=== PATIENT | male | born 1940 | race Caucasian/White ===

== ENCOUNTER 2017-11-19 07:06 | Observation (INO) | payer MEDICARE ==
--- NOTE | 2017-11-05 23:07 | HP ---
CC: Dr. Bunn * HISTORY AND PHYSICAL: DATE OF PLANNED ADMISSION AND SURGERY: 11/19/17 HISTORY OF PRESENT ILLNESS: Mr. Olivo is a 77-year-old white male who is admitted with bladder outlet obstruction, prostate enlargement, bladder calculi , recurrent urinary tract infections, for cystoscopy, cystolitholapaxy and transurethral resection of the prostate. I have been following Mr. Olivo for the last 5 years because of bladder outlet obstruction. He has been maintained on finasteride with improved voiding. Starting about 3 years ago, he has been having on and off episodes of urinary tract infections. They were mildly symptomatic with some burning and frequency. His urine cultures had grown Staph aureus. He was worked up with bilateral renal ultrasound, which showed bilateral renal calculi with one 5 mm calculus in each kidney. The calculi were asymptomatic and not associated with any flank pain, hydronephrosis or symptoms of pyelonephritis. Because of the recurrent episodes of urinary tract infections in spite of proper antibiotics treatment, the patient had a repeat cystoscopy. The prostate was enlarged and obstructing. There were diffuse bladder trabeculations. Two bladder calculi were noted measuring about 1 cm each. No suspicious bladder lesions were seen. Uroflowmetry showed a peak flow of 5 mL per second. Postvoid bladder ultrasound showed good bladder emptying. PAST MEDICAL HISTORY AND SYSTEM REVIEW: The patient has history of bipolar disorder, depression and more recently changes of dementia. He denies any cardiac or pulmonary diseases or symptoms. He is maintained on Prozac, Seroquel , and ibuprofen as needed. He has history of sleep apnea. He is on quetiapine 200 mg at bedtime. ALLERGIES: He reports having rash on FLEXERIL. LITHIUM gives him tremors, and he has intolerance to statins. PHYSICAL EXAMINATION GENERAL: Pleasant white male, who looks his age. VITAL SIGNS: Blood pressure 120/70, pulse of 80. LUNGS: Clear. HEART: Regular and rhythmic. No murmurs. ABDOMEN: Soft. No masses, no tenderness, and no CVA tenderness. EXTERNAL GENITALIA: Normal. RECTAL: Examination showed a moderately enlarged but nonsuspicious prostate. LABORATORY DATA: His last PSA on finasteride was 2.3. IMPRESSION: Recurrent episodes of urinary tract infections with prostate enlargement, bladder outlet obstruction, and bladder calculi. PLAN: Cystoscopy, cystolitholapaxy, and transurethral resection of the prostate. I discussed the above plans in detail with the patient and his . Some of the potential complications including infections, hematuria, small incidents of incontinence. All their questions were answered. [id number]/[facility] #: [id number] DIANE
[~2017-11-19 07:06] MED LIST: Buffered Lidocaine 0.9% SYRIN* 5 ML/SYR SYRINGE INTRADERM ONE; Dexamethasone IV* 4 MG/ML 1 ML (4 MG) IV SLOW PU ONE; Famotidine IV* 10 MG/ML 2 ML (20 mg) IV ONE
[2017-11-19] MEDS ORDERED: Famotidine IV* 10 MG/ML 2 ML (20 mg) ONE (07:36)
[2017-11-19] MEDS ORDERED: Dexamethasone IV* 4 MG/ML 1 ML (4 MG) ONE (07:36)
[2017-11-19] MEDS ORDERED: cefTRIAXone(*) 2 GM ADDV.VIAL IVPB ONE (07:36)
[2017-11-19 08:17] LABS: INR 1.07 (0.77-1.02)
[2017-11-19] MEDS ORDERED: HYDROcodone/ACETAMIN 5-325 MG* 1 TAB PO PRN (08:32)
[2017-11-19] MEDS ORDERED: Naloxone* 0.4 MG/ML 1 ML VIAL IV PRN (08:32)
[2017-11-19] MEDS ORDERED: fentaNYL* 50 MCG/ML 2 ML VIAL (100 MCG VIAL) IV PRN (08:32)
[2017-11-19] MEDS ORDERED: Acetaminophen TAB* 325 MG PO PRN (08:32)
[2017-11-19] MEDS ORDERED: DiMENhydriNATE IV* 50 MG/ML VIAL IV PUSH PRN (08:32)
[2017-11-19] MEDS ORDERED: fentaNYL* 50 MCG/ML 2 ML VIAL (100 MCG VIAL) ONE ×2 (08:46→09:38)
[2017-11-19] MEDS ORDERED: Lidocaine 2% PF * 5 ML VIAL ONE (08:46)
[2017-11-19] MEDS ORDERED: Propofol* 10 MG/ML 20 ML BTL IV PUSH ONE (08:46)
[2017-11-19] MEDS ORDERED: EPHEDrine (Pressors)* 50 MG/ML VIAL ONE (09:01)
[2017-11-19] MEDS ORDERED: Ondansetron INJ* 2 MG/ML VIAL ONE (09:51)
[2017-11-19] MEDS ORDERED: Lidocaine 2% JELLY* 6 ML JELLY TOPICAL PRN (12:14)
[2017-11-19] MEDS ORDERED: oxyCODONE/Acetamin 5/325 MG* TAB PO PRN ×2 (12:15→12:28)
[2017-11-19] MEDS: Oxybutynin TAB* 5 MG PO PRN (15:30)
[2017-11-19] MEDS ORDERED: Lactated Ringers 250 ml Bag* 250 ML IV ONE (17:45)
[2017-11-19 19:48] LABS: EGFR Non-African American 68.7 (>60)
--- NOTE | 2017-11-19 21:19 | CONS ---
CC: Dr. Bunn; Dr. Gnuderson; Dr. Rey * CONSULTATION REPORT: DATE OF CONSULT: 11/19/17 PRIMARY CARE PROVIDER: Dr. Bunn. MY ATTENDING PHYSICIAN WHILE IN THE HOSPITAL: Dr. Anil Koenig (report dictated by Arvind Moon NP) REASON FOR MEDICAL CONSULTATION: Evaluation of irregular heart beats. HISTORY OF PRESENT ILLNESS: Mr. Olivo is a 77-year-old male patient. He carries a history of BPH, DICK, and he also carries a history of depression, dementia, bipolar disorder, history of melanoma. He is coming into the urology services today for an elective TURP and cystoscopy. In the postoperative course , it was noted that he had an episode of bradycardia. We were asked to evaluate in consult for this. The patient says that he is not feeling lightheaded. He denies feeling short of breath. He denied having any chest discomfort. He denied having any lightheadedness or dizziness. He did admit to having some lower abdominal pressure and burning. He denies having any shortness of breath. The patient says to his knowledge, he has never had any issues with his heart. He has not had any issues of bradycardia. He does say that he recently started Aricept about few weeks ago. His neurologist, Dr. Rey , had started him on that for a mild dementia. He says that he has no history of diabetes, no history of syncope, no history of chest pain, no history of CAD or again no history of ME or heart failure. It was noted in the postoperative setting initially on the bedside monitor, the vital signs in the machine with the heart rate of 29. Nursing staff checked it manually, they got 45 and the heart rate was irregular. We were asked to evaluate. PAST MEDICAL HISTORY: Significant for: 1. BPH. 2. Depression. 3. Mild dementia. 4. Bipolar. 5. DICK. 6. Melanoma. PAST SURGICAL HISTORY: 1. The patient has had done today a TURP. 2. Back surgery. 3. Neck surgery. 4. Appendectomy. MEDICATIONS: Home medications include: 1. Percocet 1 tablet every 6 hours as needed. 2. Proscar 5 mg daily. 3. Augmentin 875 mg p.o. b.i.d. 4. Aricept 5 mg daily. 5. Prozac 20 mg daily. 6. Finasteride 5 mg p.o. daily. ALLERGIES TO MEDICATION: FLEXERIL and LITHIUM. FAMILY HISTORY: His mother had a history of emphysema. The father had a history of throat cancer. REVIEW OF SYSTEMS: There is no documented fever. Denies having any significant weight change. There is no double vision. He denies having any ear discharge. There is no rhinorrhea. There was no sore throat. There was no thyroid enlargement. Denies having any chest pain. There is no orthopnea. There is no nocturnal dyspnea. He is denying having any abdominal pain. There was no nausea. There was no vomiting. No dysuria. There was no frequency. No seizure. No loss of conscious. No pruritus and no skin ulceration. Review of 14 systems completed, all others negative. PHYSICAL EXAM: Vital Signs: Blood pressure 104/44, his heart rate now is 80, respirations are 18, O2 sat 95%, temperature 97.6. General: At this time, Mr. Olivo is a 77-year-old male patient. He is sitting in the postoperative bed. He does appear to be in any acute distress. HEENT: Head, atraumatic and normocephalic. Eyes, EOMs are intact. Sclerae anicteric and not pale. Neck: Supple. Throat: Oral mucosa does appear to be moist. No oropharyngeal erythema. Heart: Sounds S1, S2. It is in the irregularly irregular rate. No murmurs, rubs, or gallops. Lungs: Clear to auscultation. No wheezes, rales, or rhonchi. Abdomen was soft. It was flat. There is tenderness in the suprapubic area. Extremities: Pulses were 2+ throughout. He is moving all 4 extremities with 5/5 strength. Neurologically, he is awake, he is alert, and he is oriented x3. Tongue is midline. Corset Maker were equal. There was no gross focal deficits. His skin is intact. DIAGNOSTIC STUDIES/LAB DATA: Labs today, INR 1.07. Sodium 137, potassium 4.1, chloride of 104, bicarb 24, BUN 15, creatinine 1.05, calcium 8.8, glucose of 198. He had a CBC preop, WBC of 8, RBC of 5.06, hemoglobin 16.1, hematocrit 48, platelet count of 250. He did have an EKG obtained that was just done today. It shows a sinus rhythm at a rate of 80. He has multiple PACs. No ST elevations or T-wave inversions. 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 I do not have a previous EKG for comparison. Old medical records were reviewed. ASSESSMENT AND PLAN: Mr. Olivo is a 77-year-old male patient coming into the Dr. Gunderson's services for an elective transurethral resection of the prostate. We were asked to evaluate him in consult due to episodes of bradycardia, irregular heart rate. Recommendations at this point are: 1. Status post transurethral resection of the prostate. Defer the management to Dr. Gunderson and his team. 2. Bradycardia and irregular heart beat. Again, my question, with the vital signs in the machine, he is clearly having frequent PACs. It may not have been an accurate rate at 29 heart rate. His blood pressure is a little low, but it is responding to fluids. I do not know his baseline blood pressure in the outpatient world. He is asymptomatic from this standpoint, though he is not having any lightheadedness or chest pain. He does not feel like he is going to faint. There is no syncope. The EKG here appears to be stable. What could have caused this also could have been from pain or increased vagal tone. In addition to this, I am checking electrolytes. Mag and TSH are pending. His potassium is okay. Also, if he would have been sleeping, he has sleep apnea if he did not have his mask on, this certainly could have caused it. I think, we need to monitor this on telemetry. He is not having any chest pain. I do not believe there was any need for cycling his troponins and we will just follow him on tele and continue to monitor. If it continues to happen or if he goes into a higher degree of block, we will get Cardiology involved. 3. Benign prostatic hypertrophy. Defer the management to Dr. Gunderson. 4. Depression. Continue meds as prescribed. 5. Dementia. He is on Aricept. The Aricept does have 1% to 10% chance of causing irregular EKG, in addition to this causing bradycardia, so I have stopped this for the time being. This could be reevaluated with his primary neurologist, Dr. Rey and also his PCP, Dr. Bunn. 6. Bipolar disorder. Continue supportive care. 7. Obstructive sleep apnea. Continue with CPAP. I did order a pulse ox overnight for 24 hours. 8. Melanoma. Follow up with primary care provider. 9. DVT prophylaxis. Defer to the primary team. 10. Code status. Full code. 11. Fluid, electrolytes, nutrition. He can have a regular diet. TIME SPENT: Time spent on the consult was 60 minutes, greater than half time was spent [id number] with the patient obtaining my history and physical, other half time was spent going over the plan of care with the patient and implementing plan of care. I did discuss the plan of care with my attending, Dr. Koenig, he is in agreement. ARVIND MOON, TAXICAB DISPATCHER [id number]/[facility] #: [id number] MTDD
--- NOTE | 2017-11-19 21:36 | OP ---
CC: Dr. Bunn * DATE OF OPERATION: 11/19/17 - ROOM #334 DATE OF : 42 SURGEON: Harrison Gunderson MD ANESTHESIOLOGIST: Ike Ruiz MD ANESTHESIA: General. PRE-OP DIAGNOSES: 1. Recurrent urinary tract infections. 2. Prostate enlargement and bladder outlet obstruction. 3. Bladder calculi. POST-OP DIAGNOSES: 1. Recurrent urinary tract infections. 2. Prostate enlargement and bladder outlet obstruction. 3. Bladder calculi. OPERATIVE PROCEDURE: 1. Cystoscopy. 2. Cystolitholapaxy. 3. Transurethral resection of the prostate. INDICATIONS: Mr. Olivo is a 77-year-old white male who has a long history of bladder outlet obstruction, and has been maintained on finasteride 5 mg daily. He recently started having episodes of urinary tract infections recurring after adequate antibiotic treatment. Workup showed normal kidneys, and cystoscopy showed 2 bladder calculi measuring 1 cm each, a large obstructing prostate, small postvoid residual. Because of the above history, and especially the recurrent episodes of infections with the presence of bladder calculi, the above operation was advised and accepted. PATHOLOGY AT CYSTOSCOPY: The penile and bulbar urethrae looked normal. The prostatic urethra measured about 3.5 cm in length and there was significant degree of obstruction by trilobar hyperplasia of the prostate with a large obstructing median lobe. There was obstructing adenomatous tissue extending to just beyond the level of the verumontanum. Examination of the bladder showed diffuse trabeculations. There were no suspicious bladder lesions seen. Two calculi measuring 1 cm each were noted in the base of the bladder. There were no diverticula. The prostate adenoma was moderately vascular. DESCRIPTION OF PROCEDURE: After successful general anesthesia, the patient was placed in the lithotomy position, and was prepped and draped for cystoscopy. Cystoscopy was performed. The bladder was carefully inspected and the above findings were noted. The stone crushing forceps was then introduced inside the bladder. The bladder was filled up with irrigation fluid. Each stone was then grabbed with the forceps, brought in into the middle of the lumen of the bladder and was crushed into several pieces. This was performed without any injury to the bladder wall. The bladder was then irrigated and all the stone fragments were evacuated. The resectoscope was then introduced inside the bladder. Mannitol-sorbitol solution was used for irrigation and the inflow and outflow were adjusted to avoid overdistention of the bladder. The median lobe was resected first till the level of the posterior bladder neck. The protruding portions of the lateral lobes inside the bladder neck were then resected circumferentially. The resectoscope was then positioned in the mid prostatic urethra. The adenomatous tissue was resected circumferentially. The scope was then positioned at the level of the verumontanum. The left lobe was then resected starting at 5 o'clock and proceeding anteriorly. The right lobe was resected next. There was an unusual amount of anterior obstructing tissue and that was resected to the level of the capsular fibers. Some resection had to be carried just beyond the verumontanum because of obstructing adenomatous tissue protruding beyond that level. Care was taken not to injure the external sphincter. The limits of the resection were the verumontanum distally, the capsule circumferentially, and the bladder neck proximally. At the completion of the resection, the prostatic fossa was wide open. The veru and external sphincter looked intact. There were no deep cuts into the capsule and no residual obstructing tissue. All the prostate chips were evacuated. The bladder neck and the orifices were intact. After thorough bladder irrigation, the resectoscope was removed and a size 22- Greek Chilel catheter was passed inside the bladder and the balloon inflated with 35 cc of water. The catheter was placed under gentle traction and taped to the right thigh of the patient. Irrigation yielded clear returns. The patient tolerated the procedure well and left the operating room in good condition. The blood loss was estimated at about 75 cc. The specimens were fragments of bladder calculi and prostate chips. [id number]/[facility] #: [id number] DIANE
[2017-11-19] MEDS ORDERED: Magnesium Sulfate 2 GM IV* 2 GM/50 ML BAG IVPB ONE (23:00)
[2017-11-20] MEDS: Oxybutynin TAB* 5 MG PO PRN (00:33)
[2017-11-20] MEDS ORDERED: cefTRIAXone(*) 1 GM in NS 0.9% 50 ML* 50 ML IVPB ONE (07:00)
[2017-11-20] MEDS ORDERED: FLUoxetine CAP* 20 MG PO SCH (09:00)
[2017-11-20] MEDS ORDERED: Finasteride TAB* 5 MG PO SCH (09:00)
[2017-11-20] MEDS ORDERED: Donepezil TAB* 5 MG PO SCH (09:00)
[2017-11-20 10:05] VITALS: BP 126/50
--- NOTE | 2017-11-26 23:59 | DS ---
CC: Dr. Bunn * DISCHARGE SUMMARY: DATE OF ADMISSION: 11/19/17 DATE OF DISCHARGE: 11/20/17 OPERATION: 1. Cystolitholapaxy. 2. Transurethral resection of the prostate. FINAL DIAGNOSES: 1. Bladder calculi. 2. Recurrent urinary tract infections. 3. Bladder outlet obstruction due to prostate enlargement. 4. Sleep apnea. 5. Depression. 6. Bipolar disorder. 7. Early dementia. 8. Arrhythmias with premature atrial contractions. HISTORY: Mr. Olivo is a 77-year-old white male whom I have been following because of prostate enlargement and bladder outlet obstruction. He had been maintained on finasteride with improvement. Recently, he started having recurrent episodes of urinary tract infections that would recur after treatment. Workup with cystoscopy showed 2 bladder calculi measuring 1 cm each. The prostate was large and obstructing. He had minimal postvoid residual. Because of the above history, the recurrent infections, the bladder calculi, and the prostate enlargement and obstruction, he was admitted for cystolitholapaxy and transurethral resection of the prostate. PAST MEDICAL HISTORY AND SYSTEM REVIEW: The patient has a history of depression , mild dementia, bipolar disorder, sleep apnea. He has been maintained on finasteride 5 mg daily, Aricept 5 mg daily, Prozac 20 mg daily. Preoperative lab work was within normal. Preoperative physical exam was also within normal and the rectal exam showed an enlarged and nonsuspicious prostate. COURSE IN THE HOSPITAL: The patient was admitted on the morning of his surgery. He underwent an uncomplicated cystolitholapaxy and transurethral resection of the prostate. The surgery went very well without any problems. Postoperatively on the floor, he was noted to have irregular heart rate and bradycardia. A medical consultation was obtained. His electrolytes were normal. His EKG showed bradycardia and PACs. There was, however, no hypotension. The arrhythmias were possibly related to the side effects of the Aricept and this was discontinued. The patient was observed overnight and by the morning, he was feeling much better, his heart rate was regular, and he was asymptomatic. His urine was clear. The patient was discharged home on his preoperative medications with the exception of the Aricept. He will be seen in the office in 1 week for Chilel catheter removal. He is to follow up with Dr. Bunn, his copier field service technician, for the recent arrhythmias. The pathology on the resected prostate tissue was all benign. [id number]/[facility] #: [id number] [facility] CENTERSakina
== END 2017-11-20 13:20 | disposition home or self-care (01) ==
LOC: OR 07:06 → SSU 11:53
PROVIDERS: ADMIT Urology; ATTEND Urology
DX: N39.0 Urinary tract infection, site not specified (principal); N40.0 Benign prostatic hyperplasia without lower urinary tract symptoms; K80.20 Calculus of gallbladder without cholecystitis without obstruction
CPT/HCPCS: 36415; 80048; 82365; 83735; 84443; 85610; 88300; 88305; 93005; A9270-GY; G0378; J0696; J1100; J2405; J2704; J3010; J3475

== ENCOUNTER 2018-10-10 15:04 | Observation (INO) | payer MEDICARE ==
[2018-10-10 15:51] LABS: Urine Appearance Cloudy; Urine Bacteria 1+ (Absent); Urine Bilirubin Negative (Negative); Urine Blood 1+ (Negative); Urine Color Yellow; Urine Glucose Negative (Negative); Urine Ketones Negative (Negative); Urine Nitrite Negative (Negative); Urine Protein 1+(30 mg/dL) (Negative); Urine Red Blood Cell 2+(6-10/hpf) (Absent); Urine Specific Gravity 1.024 (1.010-1.030); Urine Squamous Epithelial Cell Present (Absent); Urine Urobilinogen Negative (Negative); Urine White Blood Cell 2+(11-20/hpf) (Absent)
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
[2018-10-10] MEDS ORDERED: NS 0.9% 1000 ML** 1,000 ML IV ONE (16:50)
[2018-10-10 16:58] LABS: ABS Basophils 0.1 10^3/ul (0-0.2); ABS Lymphocytes 1.9 10^3/ul (1.0-4.8); ABS Monocytes 1.1 10^3/ul (0-0.8); ABS Neutrophils 4.6 10^3/ul (1.5-7.7); Eosinophil % 0.5 %; Hematocrit 43 % (42-52); Hemoglobin 14.8 g/dL (14.0-18.0); Lymphocyte % 24.3 %; Mean Corpuscular HGB Conc 34 g/dL (31-36); Mean Corpuscular Hemoglobin 32 pg (27-31); Mean Corpuscular Volume 92 fL (80-94); Mean Platelet Volume 6.9 fL (7.4-10.4); Nucleated Red Blood Cells % 0.1; Platelet Count 225 10^3/uL (150-450); Red Blood Count 4.66 10^6 /uL (4.18-5.48); Red Cell Distribution Width 14 % (10-15); White Blood Count 7.7 10^3/uL (3.5-10.8)
[2018-10-10 17:19] LABS: Albumin 4.1 g/dL (3.2-5.2); Albumin/Globulin Ratio 1.3 (1-3); BUN/Creatinine Ratio 13.5 (8-20); C Reactive Protein 5.09 mg/L (<8.01); Calcium 9.4 mg/dL (8.6-10.3); EGFR African American 77.9 (>60); EGFR Non-African American 64.4 (>60); Globulin 3.2 g/dL (2-4); Potassium 4.1 mmol/L (3.5-5.0); Total Bilirubin 0.6 mg/dL (0.2-1.0); Total Protein 7.3 g/dL (6.4-8.9); Troponin I 0.01 ng/mL (<0.04)
[2018-10-10 18:09] LABS: Urine Appearance Clear; Urine Bacteria Absent (Absent); Urine Bilirubin Negative (Negative); Urine Blood 1+ (Negative); Urine Color Yellow; Urine Glucose Negative (Negative); Urine Ketones Negative (Negative); Urine Nitrite Negative (Negative); Urine Protein Negative (Negative); Urine Red Blood Cell 2+(6-10/hpf) (Absent); Urine Specific Gravity 1.014 (1.010-1.030); Urine Squamous Epithelial Cell Present (Absent); Urine Urobilinogen Negative (Negative); Urine White Blood Cell 1+(6-10/hpf) (Absent)
[2018-10-10] MEDS ORDERED: cefTRIAXone(*) 1 GM in NS 0.9% 50 ML* 50 ML IVPB ONE (18:15)
[2018-10-10] MEDS ORDERED: cefTRIAXone(*) 1 GM in NS 0.9% 50 ML* 50 ML IVPB SCH (19:00)
[2018-10-10] MEDS ORDERED: Ondansetron INJ* 2 MG/ML VIAL IV PRN (19:02)
[2018-10-10] MEDS ORDERED: Acetaminophen TAB* 325 MG PO PRN (19:02)
--- NOTE | 2018-10-10 20:52 | HP ---
CC: Dr. Laurel Martinez * HISTORY AND PHYSICAL: DATE OF ADMISSION: 10/10/18 PRIMARY CARE PROVIDER: Laurel Martinez MD CHIEF COMPLAINT: Confusion and hallucination. HISTORY OF PRESENT ILLNESS: This is a 77-year-old male with history of dementia ; bipolar disorder; depression; sleep apnea, on CPAP; recurrent UTI; bladder stones; chronic pain syndrome who was brought in to the hospital because had noticed that the patient is having more confusion and hallucinations. Confusion and hallucination has been going on for about 2 days now, reports that last night when this happened, the patient was found to have urinary tract infection. About 2 weeks ago, the patient reports that he had another kidney and bladder infection, he finished a course of antibiotics. In October 2017, the patient had a recurrent UTI, bladder stone, and underwent a TURP procedure. The patient reports no fevers, no chills. He does have some urinary hesitancy and frequency; however, he does not know if that is related to his prostate issues or if there is something new going on. He reports no fevers, no chills. is at bedside who reports no other symptoms except for confusion and hallucinations. The patient does have a history of dropped foot, which he is getting worked up as an outpatient, underwent an EMG two days ago for this purpose. The patient has also had decreased mobility and has history of back surgery as well as neck surgery, workup has been planned as an outpatient. reports that they want to image his back to figure out why the patient is having decreased mobility. PAST MEDICAL HISTORY: Dementia, dipolar disorder; depression; premature atrial contraction; sleep apnea, on CPAP at 10 cm; recurrent UTI; kidney stones; chronic pain syndrome. PAST SURGICAL HISTORY: TURP, neck surgery, back surgery. MEDICATIONS: Home medications include: 1. Memantine, Namenda 5 mg twice a day. 2. Fluoxetine 20 mg in the morning. 3. Cyanocobalamin 2500 mcg every other day. 4. Lipitor 20 mg daily. ALLERGIES: CYCLOBENZAPRINE, LITHIUM, and FRESH FRUIT. SOCIAL HISTORY: The patient lives at home with his , does not smoke, no alcohol use. FAMILY HISTORY: Significant for Crohn disease. REVIEW OF SYSTEMS: General: No fevers, no chills, no change in weight. No sore throat, no trouble breathing, no shortness of breath, no cough, no sputum production, no chest pain, no palpitations. No abdominal pain, no nausea, no vomiting, no diarrhea. : See HPI. Skin: No rashes or lesions. Neurological: See HPI. There is no focal weakness or numbness. PHYSICAL EXAMINATION GENERAL: This is a well-developed, well-nourished male, lying in bed, in no acute distress. VITAL SIGNS: Blood pressure of 137/94, oxygenation of 93% on room air, respiratory rate of 15, heart rate of 78, temperature is of 98.8. HEENT: Pupils are equal, round, and reactive to light. Atraumatic, normocephalic. Oral mucosa is dry, there is no oropharyngeal erythema. No cervical lymphadenopathy. LUNGS: There is no tachypnea. No use of accessory muscles. Lungs are clear to auscultation with no wheezing, rales, or rhonchi. HEART: There is no chest wall tenderness, regular rate, rhythm, no murmurs. ABDOMEN: Bowel sounds are normoactive in all 4 quadrants, abdomen is soft, nontender, nondistended. : There is no fLank tenderness. There is no suprapubic fullness or tenderness. EXTREMITIES: There is no lower extremity edema. No calf tenderness. NEUROLOGICAL: Alert and oriented x3. Motor is 5/5 in upper extremities, 4/5 lower extremities, there is a left foot drop. DIAGNOSTIC STUDIES/LAB DATA: Labs and imaging: WBC count of 7.7, hemoglobin of 14.8, hematocrit of 43, platelets of 225. Sodium of 138, potassium of 4.1, chloride of 107, BUN of 15, creatinine of 1.1, glucose of 112. Troponin is 0.01. Albumin of 4.1. Urinalysis shows specific gravity of 1.024, 1+ protein, trace leuk esterase, 2+ urine wbc, 2+ urine rbc, squamous cells were present, bacteria 1+. Official x-ray report is pending, reviewed by me, there are no acute cardiopulmonary issues, I do not see any focal consolidation suggestive of pneumonia. The patient had a brain CT done, which the radiologist read as no definitive intracranial mass or hemorrhage is noted. IMPRESSION AND PLAN: 1. Confusion: This could be secondary to an underlying urine infection and also the patient seems to be dehydrated. At this point, CAT scan of the brain is negative. I will further evaluate with an MRI of the brain. Confusion is also associated with hallucination. The patient does not have any history of alcohol use though. 2. Possible urinary tract infection: The patient has recurrent urinary tract infection, also history of TURP as well as bladder calculi. At this point, I will start the patient on IV Rocephin, await the results of a urine culture. The patient is afebrile. We will monitor the patient. 3. Dehydration: reports that the patient does not drink enough, I will start the patient on gentle IV hydration. 4. History of dementia: Continue Namenda. 5. History of depression: Continue home dose fluoxetine. 6. History of sleep apnea: Continue CPAP at 10 cm H2O. 7. History of dyslipidemia: Continue Lipitor. 8. DVT prophylaxis: ambulate, PT eval. 9. Code status: The patient and agreed that the healthcare proxy is the , [employer], phone number is [phone] and the patient is a full code. My assessment and plan discussed in detail with the patient as well as the at bedside. Additional management as the hospital course progresses. [id number]/[facility] #: [id number] MTDD
[2018-10-10] MEDS: NS 0.9% 1000 ML** 1,000 ML IV SCH (21:09)
[2018-10-10] MEDS: Memantine TAB* 5 MG PO SCH (23:06)
[2018-10-10] MEDS: Atorvastatin* 20 MG TAB PO SCH (23:07)
[2018-10-11] MEDS: NS 0.9% 1000 ML** 1,000 ML IV SCH ×2 (06:20→19:11)
[2018-10-11] MEDS: Memantine TAB* 5 MG PO SCH ×2 (10:57→20:05)
[2018-10-11] MEDS: FLUoxetine CAP* 20 MG PO SCH (10:57)
--- NOTE | 2018-10-11 11:42 | PN ---
Subjective Date of Service: 10/11/18 Interval History: No fever, confusion and hallucination resolved. reports mentation back to baseline. Objective Active Medications: Acetaminophen (Tylenol Tab*) 650 mg PO Q6H PRN PRN Reason: FEVER Atorvastatin Calcium (Lipitor*) 20 mg PO 2100 [facility] Last Admin: 10/10/18 23:07 Dose: 20 mg Cyanocobalamin (Vitamin B12 Tab*) 2,500 mcg PO EVERY OTHER DAY [facility] Fluoxetine HCl (Prozac Cap*) 20 mg PO QAM [facility] Last Admin: 10/11/18 10:57 Dose: 20 mg Sodium Chloride (Ns 0.9% 1000 Ml) 1,000 mls @ 100 mls/hr IV PER RATE [facility] Last Admin: 10/11/18 06:20 Dose: 100 mls/hr Ceftriaxone Sodium 1 gm/ (Sodium Chloride) 50 mls @ 200 mls/hr IVPB 1800 [facility] Memantine (Namenda Tab*) 5 mg PO BID [facility] Last Admin: 10/11/18 10:57 Dose: 5 mg Ondansetron HCl (Zofran Inj*) 4 mg IV Q6H PRN PRN Reason: NAUSEA Vital Signs - 8 hr 10/11/18 07:27 Temperature 98.2 F Pulse Rate 77 Respiratory 16 Rate Blood Pressure 139/81 (mmHg) O2 Sat by Pulse 92 Oximetry Oxygen Devices in Use Now: None Appearance: Sitting on chair, not in distress Respiratory: Symmetrical Chest Expansion and Respiratory Effort Cardiovascular: NL Sounds; No Murmurs; No JVD, RRR Extremities: - - Trace lower extremity edema. no calf tenderness Neurological: - - awake/alert/oriented X 2- person/place., follows commands, left foot drop. Result Diagrams: 10/10/18 16:49 10/10/18 16:49 Additional Lab and Data: Lab Results 10/10/18 Range/Units 15:20 Urine Color Yellow Urine Appearance Cloudy Urine pH 5.0 (5-9) Ur Specific [place] 1.024 (1.010-1.030) Urine Protein 1+(30 mg/dl) A (Negative) Urine Ketones Negative (Negative) Urine Blood 1+ A (Negative) Urine Nitrate Negative (Negative) Urine Bilirubin Negative (Negative) Urine Urobilinogen Negative (Negative) Ur Leukocyte Esterase Trace A (Negative) Urine WBC (Auto) 2+(11-20/hpf) A (Absent) Urine RBC (Auto) 2+(6-10/hpf) A (Absent) Ur Squamous Epith Cells Present A (Absent) Calcium Oxalate Crystal Present A (Absent) Urine Bacteria 1+ A (Absent) Urine Glucose Negative (Negative) Assess/Plan/Problems-Billing Assessment: 77 year old Male with dementia, depression, recurrent UTI, here with confusion/ hallucination. - Patient Problems (1) Encephalopathy Current Visit: Yes Status: Acute Code(s): G93.40 - ENCEPHALOPATHY, UNSPECIFIED SNOMED Code(s): 95349997 Comment: present on admission, resolved. hx of recurrent UTI, U/A is abnormal, culture pending, continue rocephin CT and MRI negative for acute issues. (2) Dehydration Current Visit: Yes Status: Acute Code(s): E86.0 - DEHYDRATION SNOMED Code( s): 91239800 Comment: IV fluids. due to low PO hydration (3) Sleep apnea Current Visit: Yes Status: Acute Code(s): G47.30 - SLEEP APNEA, UNSPECIFIED SNOMED Code(s): 72811541 Comment: CPAP (4) Dementia Current Visit: Yes Status: Acute Code(s): F03.90 - UNSPECIFIED DEMENTIA WITHOUT BEHAVIORAL DISTURBANCE SNOMED Code(s): 74528901 Comment: on namenda (5) Depression Current Visit: Yes Status: Acute Code(s): F32.9 - MAJOR DEPRESSIVE DISORDER , SINGLE EPISODE, UNSPECIFIED SNOMED Code(s): 24064997 Comment: on fluoxetine (6) DVT prophylaxis Current Visit: Yes Status: Acute Code(s): Z29.9 - ENCOUNTER FOR PROPHYLACTIC MEASURES, UNSPECIFIED SNOMED Code(s): 778558428 Comment: Ambulate,
[2018-10-11] MEDS ORDERED: cefTRIAXone(*) 1 GM in NS 0.9% 50 ML* 50 ML IVPB SCH (18:00)
[2018-10-11] MEDS: Atorvastatin* 20 MG TAB PO SCH (20:05)
[2018-10-12] MEDS: NS 0.9% 1000 ML** 1,000 ML IV SCH (05:11)
[2018-10-12] MEDS ORDERED: Cyanocobalamin TAB* 500 MCG PO SCH (09:00)
[2018-10-12] MEDS: Memantine TAB* 5 MG PO SCH (09:19)
[2018-10-12] MEDS: FLUoxetine CAP* 20 MG PO SCH (09:19)
[2018-10-12 15:16] VITALS: BP 143/85
--- NOTE | 2018-10-12 16:11 | DS ---
CC: Dr. Laurel Martinez * DISCHARGE SUMMARY: DATE OF ADMISSION: 10/10/18 DATE OF DISCHARGE: 10/12/18 PRIMARY CARE PROVIDER: Dr. Laurel Martinez. CHIEF COMPLAINT: Confusion/hallucination. ADMISSION DIAGNOSIS: Confusion secondary to possible urinary tract infection. DISCHARGE DIAGNOSES: Include: 1. Confusion, improving. 2. Urinary tract infection ruled out. 3. Dehydration. 4. History of dementia. 5. History of depression. 6. History of sleep apnea, on CPAP at 10 cm H2O. 7. History of dyslipidemia. 8. History of recurrent urinary tract infection. 9. History of benign prostatic hypertrophy. 10. History of transurethral resection of the prostate. HOSPITAL COURSE: This is a 77-year-old male with history of dementia, bipolar disorder, depression, recurrent UTI, bladder stones, history of TURP, who had presented himself to the hospital after the noted that the patient was having confusion and hallucination ongoing for about 2 days. reports that the patient had not been drinking that well for the past several weeks and the patient normally does not drink enough water at baseline. The patient also has history of dropped foot, which he is getting worked up as an outpatient. In the emergency room, the patient was seen and evaluated, on admission urinalysis was sent, white count of 7.7, urinalysis showed specific gravity of 1.024, 1+ protein, trace leukocyte esterases with squamous cell present and 1+ bacteremia. Urine culture was sent. The patient was started empirically on IV Rocephin and IV fluids were started. The patient underwent a CT of the head, which showed no definitive intracranial mass or hemorrhages noted. The patient was admitted to the floor, started on IV fluids, MRI of the brain was done which showed no acute infarcts and age-related atrophy and mild chronic small vessel ischemic disease. The patient continued to improve with his mentation although he does have dementia and at times is very forgetful. However, no more hallucinations and his confusion has improved. PHYSICAL EXAMINATION: This morning, the patient was seen and evaluated. Blood pressure of 125/75, heart rate 64, temperature of 98.3, respiratory rate of 18, O2 sat of 96% on room air. General: Elderly male, well-developed, well- nourished, lying in bed, in no acute distress. Pupils are equal, round, reactive to light. Atraumatic, normocephalic. Heart: Regular rate and rhythm, no chest wall tenderness. Lungs: No tachypnea, no use of accessory muscles. No wheezing, rales, or rhonchi. Abdomen: Bowel sounds are normoactive in all 4 quadrants. Abdomen is soft, nontender, nondistended. Extremities: No lower extremity edema. Neurologic: Alert and oriented x2. He is aware that why he is in the hospital, alert to place and location, confused to the time and the date. He is moving all 4 extremities without any issues, tongue is midline, no facial droop. Urine culture is negative. DISCHARGE PLANNING: The patient is to be discharged in a stable condition. Discharge home with . Regular diet. The patient has been encouraged to drink 8 to 9 glasses of water. The patient is to follow up with primary care doctor, Dr. Laurel Martinez. The patient to return to the emergency room for any fevers or chills, burning with urination, confusion and headaches or if any new symptoms occur. Of note, physical therapy was ordered for the patient and the patient adamantly refused to see physical therapy and kicked physical therapy out of the room. DISCHARGE MEDICATIONS: Include: 1. Atorvastatin 20 mg daily. 2. Cyanocobalamin 25 mcg every other day. 3. Fluoxetine 20 mg daily. 4. Namenda 5 mg b.i.d. No new medications were given. [id number]/[facility] #: [id number] MTDD
== END 2018-10-12 14:30 | disposition home or self-care (01) ==
LOC: ED 15:04 → MED 18:32
PROVIDERS: ADMIT Internal Medicine; ATTEND Internal Medicine
DX: R41.0 Disorientation, unspecified (principal); E86.0 Dehydration; F03.90 Unspecified dementia, unspecified severity, without behavioral disturbance, psychotic disturbance, mood disturbance, and anxiety; F32.9 Major depressive disorder, single episode, unspecified; G47.30 Sleep apnea, unspecified; E78.5 Hyperlipidemia, unspecified; N40.0 Benign prostatic hyperplasia without lower urinary tract symptoms; Z87.440 Personal history of urinary (tract) infections; Z90.79 Acquired absence of other genital organ(s); Z79.899 Other long term (current) drug therapy
CPT/HCPCS: 36415; 70450; 70551; 71046; 80053; 81003; 81015; 83605; 84484; 85025; 86140; 87086; 94660; 96361; 96365; 96366; 99284; A9270-GY; G0378; J0696

== ENCOUNTER 2018-10-13 07:54 | Emergency (ER) | payer MEDICARE ==
--- NOTE | 2018-10-13 08:13 | ED ---
Altered Mental Status - HPI Summary HPI Summary: A 77 y/o male accompanied by presents to [facility] with a chief complaint of AMS. The patient was admitted to the ED on 10/10/18. His UA was contaminated and urine cultures were negative. Brain CT and MRI were negative for anything acute and he was discharged yesterday with worsening dementia. He reports that he does not drink a lot. At triage he rated his pain as a 0/10 in severity. The patient has reportedly had intermittent episodes of confusion. Per triage note, " states he is more confused today and spent all night shaking. states that he thinks people are going to kill him and his speech pattern isn't making sense." - History Of Current Complaint Chief Complaint: EDAltMentalStatus Stated Complaint: AMS Time Seen by Provider: 10/13/18 08:04 Hx Obtained From: Patient, Family/Sustainability Executive Director Timing: Intermittent, Lasting Days Severity Initially: Mild Severity Currently: Mild Character: Confusion Aggravating Factor(s): Nothing Alleviating Factor(s): Nothing Associated Signs And Symptoms: Negative: Fever - Allergies/Home Medications Allergies/Adverse Reactions: Allergies Allergy/AdvReac Type Severity Reaction Status Date / Time cyclobenzaprine Allergy Intermediate Rash Verified 10/13/18 08:01 [From Flexeril] lithium Allergy Intermediate tremors Verified 10/13/18 08:01 fresh fruit Allergy Intermediate rining in Uncoded 11/19/17 07:48 ears PMH/Surg Hx/FS Hx/Imm Hx Endocrine/Hematology History: Denies: Hx Diabetes Cardiovascular History: Reports: Hx Hypercholesterolemia Denies: Hx Hypertension, Hx Pacemaker/ICD Respiratory History: Reports: Hx Sleep Apnea Denies: Hx Asthma GI History: Reports: Hx Irritable Bowel - gets diarrhea History: Reports: Hx Benign Prostatic Hyperplasia, Hx Kidney Infection, Hx Kidney Stones, Other Problems/Disorders - BPH Musculoskeletal History: Reports: Hx Arthritis, Hx Back Problems - herniated disc, spinal fusion and laminectomy, Other Musculoskeletal History - cervical spinal fusion, lumbar laminectomy Sensory History: Reports: Hx Contacts or Glasses - glasses Denies: Hx Hearing Aid Opthamlomology History: Reports: Hx Contacts or Glasses - glasses Neurological History: Reports: Hx Dementia, Hx Headaches Psychiatric History: Reports: Hx Depression - bipolar, slight dementia starting per MD note, Hx Bipolar Disorder Denies: Hx Panic Disorder - Cancer History Cancer Type, 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,chest Hx Chemotherapy: No - Surgical History Surgery Procedure, Year, and Place: CSP FUSION, LSP LAMINECTOMY, LEFT FOREARM TENDON REPAIR Hx Anesthesia Reactions: No Infectious Disease History: No Infectious Disease History: Denies: Traveled Outside the [place] in Last 30 Days - Family History Known Family History: Positive: Other - Cancer - Social History Alcohol Use: None Substance Use Type: Reports: None Smoking Status (MU): Never Smoked Tobacco Review of Systems Negative: Fever Neurological: Other - positive: AMS, confusion All Other Systems Reviewed And Are Negative: Yes Physical Exam - Summary Physical Exam Summary: VITAL SIGNS: Reviewed. GENERAL: Patient is a well-developed and nourished MALE who is lying comfortable in the stretcher. Patient is not in any acute respiratory distress. HEAD AND FACE: No signs of trauma. No ecchymosis, hematomas or skull depressions. No sinus tenderness. EYES: PERRLA, EOMI x 2, No injected conjunctiva, no nystagmus. EARS: Hearing grossly intact. Ear canals and tympanic membranes are within normal limits. MOUTH: Oropharynx within normal limits. NECK: Supple, trachea is midline, no adenopathy, no JVD, no carotid bruit, no c- spine tenderness, neck with full ROM. CHEST: Symmetric, no tenderness at palpation. LUNGS: Clear to auscultation bilaterally. No wheezing or crackles. CVS: Regular rate and rhythm, S1 and S2 present, no murmurs or gallops appreciated. ABDOMEN: Soft, non-tender. No signs of distention. No rebound, no guarding, and no masses palpated. Bowel sounds are normal. EXTREMITIES: FROM in all major joints, no edema, no cyanosis or clubbing. NEURO: Alert and oriented x 3. No acute neurological deficits. Speech is normal and follows commands. SKIN: Dry and warm. Triage Information Reviewed: Yes Vital Signs On Initial Exam: Initial Vitals Temp Pulse Resp BP Pulse Ox 98.2 F 109 16 143/88 92 10/13/18 07:56 10/13/18 07:56 10/13/18 07:56 10/13/18 07:56 10/13/18 07:56 Vital Signs Reviewed: Yes Diagnostics - Vital Signs Vital Signs Temp Pulse Resp BP Pulse Ox 10/13/18 07:56 98.2 F 109 16 143/88 92 - Laboratory Lab Statement: Any lab studies that have been ordered have been reviewed, and results considered in the medical decision making process. Altered Mental Statu Course/Dx - Course Assessment/Plan: The patient comes with the same complaints as an initial visit 2 days ago. The patient is getting episodes of confusion and occasional hallucinations. Initially the patient was treated with for UTI however the urine cultures were negative. The patient also had a head CT and MRI which showed no acute abnormality. Therefore the assumption was that the patients worsening symptoms of his dementia. Therefore, it was recommended by the hospitalist for the patient to follow up with neurology. The patients reports that today he is feeling better however he is having these episodes of confusion. Patient has no other complaints. The physical exam is found to be within normal limits. Therefore the patient will be discharged home with follow -up with PCP. Patient is hemodynamically stable. - Diagnoses Provider Diagnoses: Confusion Discharge - Sign-Out/Discharge Documenting (check all that apply): Patient Departure - DC Patient Received Moderate/Deep Sedation with Procedure: No - Discharge Plan Condition: Stable Disposition: HOME Patient Education Materials: Altered Mental Status (ED) Referrals: Laurel Martinez MD [Primary Care Provider] - (2-3 days) Additional Instructions: FOLLOW UP WITH YOUR PRIMARY CARE PROVIDER WITHIN 2-3 DAYS. RETURN TO THE ED FOR ANY WORSENING OR NEW SYMPTOMS. - Billing Disposition and Condition Condition: STABLE Disposition: Home - Attestation Statements Document Initiated by Josafat: Yes Documenting Scribe: Harsh Contreras Provider For Whom Josafat is Documenting (Include Credential): Brandt Chávez MD Scribe Attestation: IHarsh scribed for Brandt Chávez MD on 10/14/18 at 2019. Scribe Documentation Reviewed: Yes Provider Attestation: The documentation as recorded by the Harsh gaines accurately reflects the service I personally performed and the decisions made by , Brandt Chávez MD Status of Scribe Document: Viewed
[2018-10-13 08:27] VITALS: BP 0/0
== END 2018-10-13 08:25 | disposition home or self-care (01) ==
LOC: ED 07:54
DX: R41.0 Disorientation, unspecified (principal); R44.3 Hallucinations, unspecified; Z88.8 Allergy status to other drugs, medicaments and biological substances; Z91.018 Allergy to other foods
CPT/HCPCS: 99282

== ENCOUNTER → 2018-10-15 05:41 | Emergency (ER) | payer MEDICARE ==
[~2018-10-15 05:41] MED LIST changes: -Buffered Lidocaine 0.9% SYRIN* 5 ML/SYR SYRINGE INTRADERM ONE; -Dexamethasone IV* 4 MG/ML 1 ML (4 MG) IV SLOW PU ONE; -Famotidine IV* 10 MG/ML 2 ML (20 mg) IV ONE; +Haloperidol TAB* 5 MG PO ONE
[2018-10-15 07:01] LABS: ABS Eosinophils 0.2 10^3/ul (0-0.6); ABS Lymphocytes 1.5 10^3/ul (1.0-4.8); ABS Monocytes 0.9 10^3/ul (0-0.8); ABS Neutrophils 4.3 10^3/ul (1.5-7.7); Hematocrit 38 % (42-52); Hemoglobin 13.2 g/dL (14.0-18.0); Lymphocyte % 21.9 %; Mean Corpuscular HGB Conc 35 g/dL (31-36); Mean Corpuscular Hemoglobin 32 pg (27-31); Mean Corpuscular Volume 93 fL (80-94); Mean Platelet Volume 7.1 fL (7.4-10.4); Platelet Count 182 10^3/uL (150-450); Red Blood Count 4.13 10^6 /uL (4.18-5.48); Red Cell Distribution Width 14 % (10-15)
[2018-10-15 07:12] LABS: ALT 18 U/L (7-52); AST 33 U/L (13-39); Albumin 3.6 g/dL (3.2-5.2); Albumin/Globulin Ratio 1.3 (1-3); Alkaline Phosphatase 86 U/L (34-104); Anion Gap 8 mmol/L (2-11); BUN/Creatinine Ratio 11.8 (8-20); Blood Urea Nitrogen 12 mg/dL (6-24); CO2 Carbon Dioxide 22 mmol/L (22-32); Calcium 8.6 mg/dL (8.6-10.3); Chloride 111 mmol/L (101-111); EGFR African American 85.9 (>60); Globulin 2.7 g/dL (2-4); Glucose 100 mg/dL (70-100); Potassium 3.6 mmol/L (3.5-5.0); Sodium 141 mmol/L (135-145); Total Protein 6.3 g/dL (6.4-8.9)
--- NOTE | 2018-10-15 07:12 | ED ---
Progress - Progress Note Progress Note: This patient was signed out from Dr. Arnett to Dr. Martin at 0700 on 10/15/18, pending disposition, awaiting blood work and mental health evaluation. Mental Health Evaluation reveals that pt state is acceptable if physician is agreeable to pt discharge. 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 Re-Evaluation - Re-Evaluation First Eval Re-Evaluation Time: 08:59 Change: Unchanged Second Eval Re-Evaluation Time: 10:38 Comment: Patient's would like pt to be discharged. Course/Dx - Course Course Of Treatment: This patient was signed out from Dr. Arnett to Dr. Martin at 0700 on 10/15/18, pending disposition, awaiting blood work and mental health evaluation. Mental Health Evaluation reveals that pt state is acceptable if physician is agreeable to pt discharge. Patient's woud like pt to be discharged. 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 - Diagnoses Provider Diagnoses: Dementia, Psychosis Discharge - Sign-Out/Discharge Documenting (check all that apply): Patient Departure - Discharge Patient Received Moderate/Deep Sedation with Procedure: No - Discharge Plan Condition: Stable Disposition: HOME Prescriptions: Quetiapine Fumarate [Seroquel 50 mg tab] 50 mg PO BEDTIME #20 tab Patient Education Materials: Mood Disorders (ED), Dementia (ED) Referrals: Laurel Martinez MD [Primary Care Provider] - - Billing Disposition and Condition Condition: STABLE Disposition: Home - Attestation Statements Document Initiated by Scribe: Yes Documenting Scribe: Amanda Llanos Provider For Whom Josafat is Documenting (Include Credential): Dr. Radha Lomas MD Scribe Attestation: Amanda Todd scribed for Dr. Radha Lomas MD on 10/15/18 at 1853. Scribe Documentation Reviewed: Yes Provider Attestation: The documentation as recorded by the Amanda gaines accurately reflects the service I personally performed and the decisions made by me, Dr. Radha Lomas MD Status of Scribe Document: Viewed
--- NOTE | 2018-10-15 07:25 | ED ---
Psychiatric Complaint - HPI Summary HPI Summary: This patient is a 77 year old M presenting to [facility] [place] accompanied by his with a chief complaint of psychiatric complaint since a few days ago. Per , patient has been making crazy comments at night. Patient was diagnosed with early dementia a year ago and has been on and off Prozac. noted that he was confused in March in [place] because he would go outside without all of his clothes on. 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 Patient has hx of UTI. The patient rates the pain 0/10 in severity. Symptoms aggravated by nothing. Symptoms alleviated by nothing. - History Of Current Complaint Chief Complaint: EDPsychosocial Time Seen by Provider: 10/15/18 06:14 Hx Obtained From: Patient, Family/Police Judge - Hx From Patient Unobtainable Due To: Dementia - pt has early dementia Onset/Duration: Lasting Days - 3, Still Present Timing: Days - has been making "crazy" comments for the past few days per Severity Currently: None Aggravating Factor(s): Nothing Alleviating Factor(s): Nothing Associated Signs And Symptoms: Positive: Confused - Allergies/Home Medications Allergies/Adverse Reactions: Allergies Allergy/AdvReac Type Severity Reaction Status Date / Time cyclobenzaprine Allergy Intermediate Rash Verified 10/15/18 14:21 [From Flexeril] lithium Allergy Intermediate tremors Verified 10/15/18 14:21 fresh fruit Allergy Intermediate rining in Uncoded 10/15/18 14:21 ears PMH/Surg Hx/FS Hx/Imm Hx Previously Healthy: No Endocrine/Hematology History: Denies: Hx Diabetes Cardiovascular History: Reports: Hx Hypercholesterolemia Denies: Hx Hypertension, Hx Pacemaker/ICD Respiratory History: Reports: Hx Sleep Apnea Denies: Hx Asthma GI History: Reports: Hx Irritable Bowel - gets diarrhea History: Reports: Hx Benign Prostatic Hyperplasia, Hx Kidney Infection, Hx Kidney Stones, Other Problems/Disorders - BPH Musculoskeletal History: Reports: Hx Arthritis, Hx Back Problems - herniated disc, spinal fusion and laminectomy, Other Musculoskeletal History - cervical spinal fusion, lumbar laminectomy Sensory History: Reports: Hx Contacts or Glasses - glasses Denies: Hx Hearing Aid Opthamlomology History: Reports: Hx Contacts or Glasses - glasses Neurological History: Reports: Hx Dementia, Hx Headaches Psychiatric History: Reports: Hx Depression - bipolar, slight dementia starting per MD note, Hx Bipolar Disorder Denies: Hx Panic Disorder - Cancer History Cancer Type, 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,chest Hx Chemotherapy: No - Surgical History Surgical History: Yes Surgery Procedure, Year, and Place: CSP FUSION, LSP LAMINECTOMY, LEFT FOREARM TENDON REPAIR Hx Anesthesia Reactions: No Infectious Disease History: No Infectious Disease History: Denies: Traveled Outside the [place] in Last 30 Days - Family History Known Family History: Positive: Other - Cancer - Social History Alcohol Use: None Hx Substance Use: No Substance Use Type: Reports: None Hx Tobacco Use: No Smoking Status (MU): Never Smoked Tobacco Do You Chew or Dip Tobacco: No Have You Chewed or Dipped Tobacco in the LAST YEAR: No Have You Smoked in the Last Year: No Review of Systems Negative: Fever Psychological: Other - positive - has been making "crazy" comments the past few nights, noted that he was confused in March in [place] because he would go outside without all of his clothes on All Other Systems Reviewed And Are Negative: Yes Physical Exam - Summary Physical Exam Summary: VITAL SIGNS: Reviewed. GENERAL: Patient is a well-developed and nourished MALE who is lying comfortable in the stretcher. Patient is not in any acute respiratory distress. HEAD AND FACE: No signs of trauma. No ecchymosis, hematomas or skull depressions. No sinus tenderness. EYES: PERRLA, EOMI x 2, No injected conjunctiva, no nystagmus. EARS: Hearing grossly intact. Ear canals and tympanic membranes are within normal limits. MOUTH: Oropharynx within normal limits. NECK: Supple, trachea is midline, no adenopathy, no JVD, no carotid bruit, no c- spine tenderness, neck with full ROM CHEST: Symmetric, no tenderness at palpation LUNGS: Clear to auscultation bilaterally. No wheezing or crackles. CVS: Regular rate and rhythm, S1 and S2 present, no murmurs or gallops appreciated. ABDOMEN: Soft, non-tender. No signs of distention. No rebound no guarding, and no masses palpated. Bowel sounds are normal. EXTREMITIES: FROM in all major joints, no edema, no cyanosis or clubbing. NEURO: Alert and oriented to name and place. No acute neurological deficits. Speech is normal and follows commands. SKIN: Dry and warm Triage Information Reviewed: Yes Vital Signs On Initial Exam: Initial Vitals Temp Pulse Resp BP Pulse Ox 98.8 F 90 15 136/92 97 10/15/18 05:45 10/15/18 05:45 10/15/18 05:45 10/15/18 05:45 10/15/18 05:45 Vital Signs Reviewed: Yes Diagnostics - Vital Signs Vital Signs Temp Pulse Resp BP Pulse Ox 10/15/18 06:07 78 93 10/15/18 06:05 80 157/91 93 10/15/18 05:45 98.8 F 90 15 136/92 97 - Laboratory Lab Results: Lab Results 10/15/18 10/15/18 Range/Units 06:33 06:33 WBC 7.0 (3.5-10.8) 10^3/uL RBC 4.13 L (4.18-5.48) 10^6 /uL Hgb 13.2 L (14.0-18.0) g/dL Hct 38 L (42-52) % MCV 93 (80-94) fL MCH 32 H (27-31) pg MCHC 35 (31-36) g/dL RDW 14 (10-15) % Plt Count 182 (150-450) 10^3/uL MPV 7.1 L (7.4-10.4) fL Neut % (Auto) 61.7 % Lymph % (Auto) 21.9 % Rolette % (Auto) 12.7 % Eos % (Auto) 3.0 % Baso % (Auto) 0.7 % Absolute Neuts (auto) 4.3 (1.5-7.7) 10^3/ul Absolute Lymphs (auto) 1.5 (1.0-4.8) 10^3/ul Absolute Monos (auto) 0.9 H (0-0.8) 10^3/ul Absolute Eos (auto) 0.2 (0-0.6) 10^3/ul Absolute Basos (auto) 0.0 (0-0.2) 10^3/ul Absolute Nucleated RBC 0.0 10^3/ul Nucleated RBC % 0.0 Sodium 141 (135-145) mmol/L Potassium 3.6 (3.5-5.0) mmol/L Chloride 111 (101-111) mmol/L Carbon Dioxide 22 (22-32) mmol/L Anion Gap 8 (2-11) mmol/L BUN 12 (6-24) mg/dL Creatinine 1.02 (0.67-1.17) mg/dL Est GFR ( Amer) 85.9 (>60) Est GFR (Non-Af Amer) 71.0 (>60) BUN/Creatinine Ratio 11.8 (8-20) Glucose 100 (70-100) mg/dL Calcium 8.6 (8.6-10.3) mg/dL Total Bilirubin 0.90 (0.2-1.0) mg/dL AST 33 (13-39) U/L ALT 18 (7-52) U/L Alkaline Phosphatase 86 (34-104) U/L Total Protein 6.3 L (6.4-8.9) g/dL Albumin 3.6 (3.2-5.2) g/dL Globulin 2.7 (2-4) g/dL Albumin/Globulin Ratio 1.3 (1-3) TSH Pending Salicylates Pending Acetaminophen Pending Serum Alcohol Pending Result Diagrams: 10/15/18 06:33 10/15/18 06:33 Lab Statement: Any lab studies that have been ordered have been reviewed, and results considered in the medical decision making process. Course/Dx - Course Course Of Treatment: This patient is a 77 year old M presenting to [facility] [place] accompanied by his with a chief complaint of psychiatric complaint since a few days ago. Per , patient has been making crazy comments at night. Patient was diagnosed with early dementia a year ago and has been on and off Prozac. noted that he was confused in March in [place] because he would go outside without all of his clothes on. 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 Patient has hx of UTI. The patient rates the pain 0/10 in severity. Symptoms aggravated by nothing. Symptoms alleviated by nothing. Physical exam findings show patient is alert and oriented to name and place. Lab results show RBC 4.13, Hgb 13.2, Hct 38, MCH 32, MPV 7.1, absolute monos 0.9, total protein 6.3. This patient will be a sign out from Dr. Arnett to Dr. Martin at 0700 10/15/18 shift change pending blood work and mental health evaluation - Differential Dx/Clinical Impression Provider Diagnosis: Dementia, Psychosis Discharge - Sign-Out/Discharge Documenting (check all that apply): Sign-Out Patient Signing out patient TO: Radha Lomas - This patient will be a sign out from Dr. Arnett to Dr. Martin at 0700 10/15/18 shift change pending blood work and mental health evaluation Patient Received Moderate/Deep Sedation with Procedure: No - Discharge Plan Condition: Stable Disposition: HOME Prescriptions: Quetiapine Fumarate [Seroquel 50 mg tab] 50 mg PO BEDTIME #20 tab Patient Education Materials: Mood Disorders (ED), Dementia (ED) Referrals: Laurel Martinez MD [Primary Care Provider] - - Billing Disposition and Condition Condition: STABLE Disposition: Home - Attestation Statements Document Initiated by Scribe: Yes Documenting Scribe: Doug Lujan Provider For Whom Tikaibe is Documenting (Include Credential): Dr. Lamin Arnett MD Scribe Attestation: Doug Todd scribed for Dr. Lamin Arnett MD on 10/15/18 at 2002. Scribe Documentation Reviewed: Yes Provider Attestation: The documentation as recorded by the Doug gaines accurately reflects the service I personally performed and the decisions made by me, Dr. Lamin Arnett MD Status of Scribe Document: Viewed
[2018-10-15 07:26] LABS: Acetaminophen < 15 mcg/mL; Alcohol < 10 mg/dL (<10); Salicylate < 2.50 mg/dL (<30)
[2018-10-15 07:40] LABS: TSH (Thyroid Stimulating Horm) 2.19 mcIU/mL (0.34-5.60)
[2018-10-15 07:42] LABS: Urine Appearance Cloudy; Urine Bilirubin Negative (Negative); Urine Blood Negative (Negative); Urine Color Yellow; Urine Glucose Negative (Negative); Urine Ketones Negative (Negative); Urine Nitrite Negative (Negative); Urine Protein Negative (Negative); Urine Specific Gravity 1.014 (1.010-1.030); Urine Urobilinogen Negative (Negative)
[2018-10-15 08:38] LABS: Urine Benzodiazepine Screen None Detected (None Detect); Urine Opiates Screen None Detected (None Detect)
[2018-10-15 11:06] VITALS: BP 167/101
== END | disposition home or self-care (01) ==
LOC: ED 05:41
DX: F29 Unspecified psychosis not due to a substance or known physiological condition (principal); F03.90 Unspecified dementia, unspecified severity, without behavioral disturbance, psychotic disturbance, mood disturbance, and anxiety; R41.0 Disorientation, unspecified; E78.00 Pure hypercholesterolemia, unspecified; N40.0 Benign prostatic hyperplasia without lower urinary tract symptoms; Z87.442 Personal history of urinary calculi
CPT/HCPCS: 36415; 80053; 80307; 80320; 80329; 81003; 84443; 85025; 99284; A9270-GY; G0480

== ENCOUNTER 2019-11-28 16:11 | Inpatient (IN) ==
[2019-11-28 18:08] LABS: INR 1.24 (0.82-1.09)
[2019-11-28 18:10] LABS: ALT 16 U/L (7-52); Albumin 4.2 g/dL (3.2-5.2); Albumin/Globulin Ratio 1.3 (1-3); Alkaline Phosphatase 87 U/L (34-104); BUN/Creatinine Ratio 15.1 (8-20); Blood Urea Nitrogen 18 mg/dL (6-24); C Reactive Protein 5.69 mg/L (<8.01); CO2 Carbon Dioxide 20 mmol/L (22-32); Calcium 9.4 mg/dL (8.6-10.3); Chloride 107 mmol/L (101-111); Creatine Kinase 139 U/L (10-223); EGFR African American 71.5 (>60); EGFR Non-African American 59.1 (>60); Globulin 3.2 g/dL (2-4); Glucose 108 mg/dL (70-100); Magnesium 1.9 mg/dL (1.9-2.7); Sodium 139 mmol/L (135-145); Total Protein 7.4 g/dL (6.4-8.9)
[2019-11-28 18:16] LABS: Troponin I 0.04 ng/mL (<0.03)
[2019-11-28 18:21] LABS: ABS Basophils 0.1 10^3/ul (0-0.2); ABS Eosinophils 0.1 10^3/ul (0-0.6); ABS Lymphocytes 1.5 10^3/ul (1.0-4.8); ABS Neutrophils 6.3 10^3/ul (1.5-7.7); Eosinophil % 0.8 %; Hematocrit 42 % (42-52); Hemoglobin 14.2 g/dL (14.0-18.0); Lymphocyte % 17.2 %; Mean Corpuscular HGB Conc 34 g/dL (31-36); Mean Corpuscular Hemoglobin 31 pg (27-31); Mean Corpuscular Volume 92 fL (80-94); Mean Platelet Volume 7.2 fL (7.4-10.4); Platelet Count 181 10^3/uL (150-450); Red Blood Count 4.54 10^6 /uL (4.18-5.48); Red Cell Distribution Width 15 % (10-15)
[2019-11-28 19:03] LABS: AST 25 U/L (13-39); Anion Gap 12 mmol/L (2-11); Potassium 3.8 mmol/L (3.5-5.0)
[2019-11-28] MEDS ORDERED: NS 0.9% 1000 ml BAG 1,000 ML IV SCH ×2 (20:00→20:45)
[2019-11-28 20:03] LABS: Urine Appearance Clear; Urine Bilirubin Negative (Negative); Urine Blood Negative (Negative); Urine Color Yellow; Urine Glucose Negative (Negative); Urine Ketones Trace (Negative); Urine Nitrite Negative (Negative); Urine Protein Negative (Negative); Urine Specific Gravity 1.019 (1.010-1.030); Urine Urobilinogen Negative (Negative)
[2019-11-28 20:09] LABS: Urine Bacteria Absent (Absent); Urine Red Blood Cell Absent (Absent); Urine White Blood Cell 1+(6-10/hpf) (Absent)
[2019-11-28] MEDS ORDERED: cefTRIAXone 1 gm/50 mL NS BAG 1 GM/50 ML BAG IVPB ONE (20:10)
[2019-11-28] MEDS: Enoxaparin 40 MG/0.4 ML SYR SUBCUT SCH (20:27)
[2019-11-28 22:44] LABS: Troponin I 0.04 ng/mL (<0.03)
[2019-11-29 00:23] LABS: Troponin I 0.04 ng/mL (<0.03)
[2019-11-29] MEDS: Enoxaparin 40 MG/0.4 ML SYR SUBCUT SCH (20:08)
[2019-11-29] MEDS ORDERED: cefTRIAXone 1 gm/50 mL NS BAG 1 GM/50 ML BAG IVPB SCH (21:00)
[2019-11-30 08:00] VITALS: BP 116/72
== END 2019-11-30 15:05 | disposition home or self-care (01) ==
LOC: MEDTELE 16:11 → ED 16:11 → MEDTELE 23:30
PROVIDERS: ADMIT Internal Medicine; ATTEND Hospitalist

== ENCOUNTER 2020-06-29 16:48 | Inpatient (IN) ==
[2020-06-29] MEDS ORDERED: NS 0.9% 1000 ml BAG 1,000 ML IV ONE (16:52)
[2020-06-29] MEDS ORDERED: Iodixanol (CONTRAST) 320 MG/ML 100 ML SDV IV ONE (17:14)
[2020-06-29 17:35] LABS: ABS Eosinophils 0.1 10^3/ul (0-0.6); ABS Lymphocytes 1.9 10^3/ul (1.0-4.8); ABS Monocytes 0.9 10^3/ul (0-0.8); ABS Neutrophils 3.4 10^3/ul (1.5-7.7); Eosinophil % 2.3 %; Hematocrit 43 % (42-52); Hemoglobin 14.2 g/dL (14.0-18.0); Lymphocyte % 29.4 %; Mean Corpuscular HGB Conc 33 g/dL (31-36); Mean Corpuscular Hemoglobin 32 pg (27-31); Mean Corpuscular Volume 97 fL (80-94); Mean Platelet Volume 7.5 fL (7.4-10.4); Nucleated Red Blood Cells % 0.1; Platelet Count 150 10^3/uL (150-450); Red Blood Count 4.44 10^6 /uL (4.18-5.48); Red Cell Distribution Width 15 % (10-15); White Blood Count 6.4 10^3/uL (3.5-10.8)
[2020-06-29 17:55] LABS: Albumin 3.5 g/dL (3.2-5.2); Albumin/Globulin Ratio 1.3 (1-3); Calcium 8.7 mg/dL (8.6-10.3); EGFR African American 87.4 (>60); EGFR Non-African American 72.3 (>60); Globulin 2.6 g/dL (2-4); HDL Cholesterol 35.7 mg/dL; Potassium 4.3 mmol/L (3.5-5.0); Total Bilirubin 0.6 mg/dL (0.2-1.0); Total Protein 6.1 g/dL (6.4-8.9); Troponin I 0.01 ng/mL (<0.03)
[2020-06-29 18:09] LABS: Activated Partial Thrombo Time 27.2 seconds (26.0-38.0); INR 1.24 (0.82-1.09)
[2020-06-29 22:07] LABS: TSH Ultra Thyroid Stim Horm 1.45 mcIU/mL (0.34-5.60)
[2020-06-29 22:09] LABS: Free T4 0.9 ng/dL (0.61-1.12)
[2020-06-29 22:18] LABS: Folate 9.64 ng/mL (>3.99)
[2020-06-29 22:20] LABS: Urine Appearance Clear; Urine Bilirubin Negative (Negative); Urine Blood Negative (Negative); Urine Color Yellow; Urine Glucose Negative (Negative); Urine Ketones Negative (Negative); Urine Nitrite Negative (Negative); Urine Protein Negative (Negative); Urine Specific Gravity 1.055 (1.002-1.030); Urine Urobilinogen Negative (Negative)
[2020-06-29 22:30] LABS: Urine Bacteria 1+ (Absent); Urine Red Blood Cell 1+(3-5/hpf) (Absent); Urine Squamous Epithelial Cell Present (Absent); Urine White Blood Cell 3+(>20/hpf) (Absent)
[2020-06-30] MEDS: Enoxaparin 40 MG/0.4 ML SYR SUBCUT SCH ×2 (00:06→21:45)
[2020-06-30] MEDS ORDERED: Perflutren Lipid Microsphere 3 ML VIAL ONE (09:20)
[2020-07-01 05:42] LABS: ABS Eosinophils 0.2 10^3/ul (0-0.6); ABS Lymphocytes 1.4 10^3/ul (1.0-4.8); ABS Monocytes 0.8 10^3/ul (0-0.8); ABS Neutrophils 4.6 10^3/ul (1.5-7.7); Eosinophil % 2.7 %; Hematocrit 44 % (42-52); Hemoglobin 14.9 g/dL (14.0-18.0); Lymphocyte % 20.2 %; Mean Corpuscular HGB Conc 34 g/dL (31-36); Mean Corpuscular Hemoglobin 32 pg (27-31); Mean Corpuscular Volume 96 fL (80-94); Mean Platelet Volume 7.6 fL (7.4-10.4); Platelet Count 138 10^3/uL (150-450); Red Blood Count 4.62 10^6 /uL (4.18-5.48); Red Cell Distribution Width 14 % (10-15); White Blood Count 6.9 10^3/uL (3.5-10.8)
[2020-07-01 05:46] LABS: Calcium 8.6 mg/dL (8.6-10.3); Magnesium 1.8 mg/dL (1.9-2.7); Potassium 3.8 mmol/L (3.5-5.0)
[2020-07-01 05:52] LABS: BUN/Creatinine Ratio 19.6 (8-20); EGFR African American 90.6 (>60); EGFR Non-African American 74.9 (>60)
[2020-07-01] MEDS: Enoxaparin 40 MG/0.4 ML SYR SUBCUT SCH (21:31)
[2020-07-02] MEDS: Enoxaparin 40 MG/0.4 ML SYR SUBCUT SCH (21:14)
[2020-07-03 05:29] LABS: ABS Basophils 0.1 10^3/ul (0-0.2); ABS Eosinophils 0.2 10^3/ul (0-0.6); ABS Lymphocytes 1.7 10^3/ul (1.0-4.8); ABS Monocytes 0.8 10^3/ul (0-0.8); ABS Neutrophils 4.1 10^3/ul (1.5-7.7); Eosinophil % 2.7 %; Hematocrit 41 % (42-52); Hemoglobin 13.8 g/dL (14.0-18.0); Lymphocyte % 24.5 %; Mean Corpuscular HGB Conc 34 g/dL (31-36); Mean Corpuscular Hemoglobin 32 pg (27-31); Mean Corpuscular Volume 96 fL (80-94); Mean Platelet Volume 7.5 fL (7.4-10.4); Platelet Count 148 10^3/uL (150-450); Red Blood Count 4.31 10^6 /uL (4.18-5.48); Red Cell Distribution Width 14 % (10-15); White Blood Count 6.9 10^3/uL (3.5-10.8)
[2020-07-03 05:49] LABS: Albumin 3.5 g/dL (3.2-5.2); Albumin/Globulin Ratio 1.3 (1-3); BUN/Creatinine Ratio 16.5 (8-20); Calcium 8.8 mg/dL (8.6-10.3); EGFR African American 90.6 (>60); EGFR Non-African American 74.9 (>60); Globulin 2.7 g/dL (2-4); Potassium 3.6 mmol/L (3.5-5.0); Total Bilirubin 0.9 mg/dL (0.2-1.0); Total Protein 6.2 g/dL (6.4-8.9)
[2020-07-03] MEDS: Enoxaparin 40 MG/0.4 ML SYR SUBCUT SCH (20:46)
[2020-07-04] MEDS: Enoxaparin 40 MG/0.4 ML SYR SUBCUT SCH (20:39)
[2020-07-05 12:12] VITALS: BP 118/81
== END 2020-07-05 16:45 | DRG 66 ==
LOC: ED 16:48 → MEDTELE 20:54
PROVIDERS: ADMIT Internal Medicine; ATTEND Hospitalist

== ENCOUNTER 2020-07-05 14:47 | Inpatient (IN) ==
[2020-07-05] MEDS ORDERED: Magnesium Hydroxide LIQ 30 ML UDC PO PRN (17:48)
[2020-07-05] MEDS ORDERED: Senna TAB 8.6 mg TAB PO PRN (17:48)
[2020-07-05] MEDS: Enoxaparin 40 MG/0.4 ML SYR SUBCUT SCH (21:08)
[2020-07-06] MEDS: Aspirin EC 81 mg TAB.EC (enteric coated) PO SCH (08:59)
[2020-07-06] MEDS: Enoxaparin 40 MG/0.4 ML SYR SUBCUT SCH (20:37)
[2020-07-07 07:59] LABS: ABS Eosinophils 0.3 10^3/ul (0-0.6); ABS Lymphocytes 1.6 10^3/ul (1.0-4.8); ABS Monocytes 0.6 10^3/ul (0-0.8); ABS Neutrophils 3.1 10^3/ul (1.5-7.7); Eosinophil % 4.6 %; Hematocrit 39 % (42-52); Hemoglobin 13.3 g/dL (14.0-18.0); Lymphocyte % 28.2 %; Mean Corpuscular HGB Conc 34 g/dL (31-36); Mean Corpuscular Hemoglobin 32 pg (27-31); Mean Corpuscular Volume 95 fL (80-94); Mean Platelet Volume 7.7 fL (7.4-10.4); Nucleated Red Blood Cells % 0.1; Platelet Count 158 10^3/uL (150-450); Red Blood Count 4.12 10^6 /uL (4.18-5.48); Red Cell Distribution Width 15 % (10-15); White Blood Count 5.6 10^3/uL (3.5-10.8)
[2020-07-07 08:18] LABS: Albumin 3.5 g/dL (3.2-5.2); Albumin/Globulin Ratio 1.3 (1-3); BUN/Creatinine Ratio 23.3 (8-20); Calcium 8.8 mg/dL (8.6-10.3); EGFR African American 104.1 (>60); Globulin 2.7 g/dL (2-4); Potassium 3.7 mmol/L (3.5-5.0); Total Bilirubin 0.6 mg/dL (0.2-1.0); Total Protein 6.2 g/dL (6.4-8.9)
[2020-07-07] MEDS: Aspirin EC 81 mg TAB.EC (enteric coated) PO SCH (10:42)
[2020-07-07] MEDS: Enoxaparin 40 MG/0.4 ML SYR SUBCUT SCH (20:53)
[2020-07-08] MEDS: Aspirin EC 81 mg TAB.EC (enteric coated) PO SCH (10:12)
[2020-07-08] MEDS: Enoxaparin 40 MG/0.4 ML SYR SUBCUT SCH (20:48)
[2020-07-09] MEDS: Aspirin EC 81 mg TAB.EC (enteric coated) PO SCH (07:51)
[2020-07-09] MEDS: Enoxaparin 40 MG/0.4 ML SYR SUBCUT SCH (20:10)
[2020-07-10] MEDS: Aspirin EC 81 mg TAB.EC (enteric coated) PO SCH (09:44)
[2020-07-10 13:11] LABS: Urine Appearance Clear; Urine Bilirubin Negative (Negative); Urine Blood 1+ (Negative); Urine Color Yellow; Urine Glucose Negative (Negative); Urine Ketones Negative (Negative); Urine Nitrite Negative (Negative); Urine Protein Negative (Negative); Urine Urobilinogen Negative (Negative)
[2020-07-10 13:16] LABS: Urine Bacteria Absent (Absent); Urine Red Blood Cell 3+(>10/hpf) (Absent); Urine Squamous Epithelial Cell Present (Absent); Urine White Blood Cell 1+(6-10/hpf) (Absent)
[2020-07-10] MEDS: Enoxaparin 40 MG/0.4 ML SYR SUBCUT SCH (21:21)
[2020-07-11] MEDS: Aspirin EC 81 mg TAB.EC (enteric coated) PO SCH (08:27)
[2020-07-11] MEDS: Enoxaparin 40 MG/0.4 ML SYR SUBCUT SCH (21:24)
[2020-07-12] MEDS: Aspirin EC 81 mg TAB.EC (enteric coated) PO SCH (09:31)
[2020-07-12] MEDS: Enoxaparin 40 MG/0.4 ML SYR SUBCUT SCH (21:32)
[2020-07-13] MEDS: Aspirin EC 81 mg TAB.EC (enteric coated) PO SCH (10:18)
[2020-07-13] MEDS: Enoxaparin 40 MG/0.4 ML SYR SUBCUT SCH (21:48)
[2020-07-14 08:21] LABS: ABS Eosinophils 0.3 10^3/ul (0-0.6); ABS Lymphocytes 1.7 10^3/ul (1.0-4.8); ABS Monocytes 0.7 10^3/ul (0-0.8); ABS Neutrophils 2.7 10^3/ul (1.5-7.7); Eosinophil % 4.9 %; Hematocrit 40 % (42-52); Hemoglobin 13.5 g/dL (14.0-18.0); Lymphocyte % 31.7 %; Mean Corpuscular HGB Conc 34 g/dL (31-36); Mean Corpuscular Hemoglobin 32 pg (27-31); Mean Corpuscular Volume 95 fL (80-94); Mean Platelet Volume 7.9 fL (7.4-10.4); Platelet Count 169 10^3/uL (150-450); Red Blood Count 4.19 10^6 /uL (4.18-5.48); Red Cell Distribution Width 14 % (10-15); White Blood Count 5.3 10^3/uL (3.5-10.8)
[2020-07-14 08:26] LABS: Albumin 3.4 g/dL (3.2-5.2); Albumin/Globulin Ratio 1.3 (1-3); BUN/Creatinine Ratio 26.1 (8-20); Calcium 8.9 mg/dL (8.6-10.3); EGFR African American 96.3 (>60); EGFR Non-African American 79.6 (>60); Globulin 2.7 g/dL (2-4); Potassium 4.5 mmol/L (3.5-5.0); Total Bilirubin 0.4 mg/dL (0.2-1.0); Total Protein 6.1 g/dL (6.4-8.9)
[2020-07-14] MEDS: Aspirin EC 81 mg TAB.EC (enteric coated) PO SCH (08:29)
[2020-07-14 12:00] VITALS: BP 116/74
== END 2020-07-14 13:15 | disposition home health service (06) | DRG 56 ==
LOC: PMRU 16:46 → MED 07-06 03:03
PROVIDERS: ADMIT Physical Medicine & Rehabilitation; ATTEND Physical Medicine & Rehabilitation

== ENCOUNTER 2021-07-20 08:28 | Inpatient (IN) ==
[2021-07-20] MEDS ORDERED: Midazolam 2 mg/2 ml VIAL 1 mg/ml 2 ml VIAL (2 mg) IM ONE (08:35)
[2021-07-20] MEDS ORDERED: Lactated Ringers 1000 ml BAG 1,000 ML IV ONE ×3 (08:43→12:59)
[2021-07-20] MEDS ORDERED: LORazepam 2 mg VIAL 1 ml IV PUSH ONE (10:07)
[2021-07-20] MEDS ORDERED: Lorazepam PYXIS KEY PRN (10:07)
[2021-07-20 10:12] LABS: ABS Basophils 0.1 10^3/ul (0-0.2); ABS Lymphocytes 0.8 10^3/ul (1.0-4.8); ABS Monocytes 0.9 10^3/ul (0-0.8); Eosinophil % 0.3 %; Hematocrit 43 % (42-52); Hemoglobin 14.2 g/dL (14.0-18.0); Lymphocyte % 6.6 %; Mean Corpuscular HGB Conc 33 g/dL (31-36); Mean Corpuscular Hemoglobin 32 pg (27-31); Mean Corpuscular Volume 97 fL (80-94); Mean Platelet Volume 6.6 fL (7.4-10.4); Platelet Count 245 10^3/uL (150-450); Red Blood Count 4.43 10^6 /uL (4.18-5.48); Red Cell Distribution Width 14 % (10-15); White Blood Count 12.9 10^3/uL (3.5-10.8)
[2021-07-20] MEDS ORDERED: cefTRIAXone 1 gm/50 mL D5W 1 GM/50 ML BAG IV ONE (10:34)
[2021-07-20 11:19] LABS: Albumin 3.9 g/dL (3.2-5.2); Calcium 9.1 mg/dL (8.6-10.3); Total Bilirubin 0.6 mg/dL (0.2-1.0)
[2021-07-20 11:25] LABS: Globulin 3.8 g/dL (2-4); Total Protein 7.7 g/dL (6.4-8.9); eGFR CKD-EPI 12.6 (>60)
[2021-07-20 11:30] LABS: Potassium 5.3 mmol/L (3.5-5.0)
[2021-07-20 11:35] LABS: Urine Appearance Cloudy; Urine Bilirubin Negative (Negative); Urine Blood 3+ (Negative); Urine Color Yellow; Urine Glucose Negative (Negative); Urine Ketones 1+ (Negative); Urine Nitrite Negative (Negative); Urine Protein 1+(30 mg/dL) (Negative); Urine Specific Gravity 1.017 (1.002-1.030); Urine Urobilinogen Negative (Negative)
[2021-07-20 11:54] LABS: Urine Bacteria Absent (Absent); Urine Red Blood Cell 3+(>10/hpf) (Absent); Urine Squamous Epithelial Cell Present (Absent); Urine White Blood Cell 3+(>20/hpf) (Absent)
[2021-07-20] MEDS: Enoxaparin 30 MG/0.3 ML SYR SUBCUT SCH (13:00)
[2021-07-20 13:33] LABS: Magnesium 2.5 mg/dL (1.9-2.7)
[2021-07-20 13:39] LABS: C Reactive Protein 138.28 mg/L (<8.01)
[2021-07-20 17:41] LABS: Calcium 8.3 mg/dL (8.6-10.3); eGFR CKD-EPI 14.4 (>60)
[2021-07-20 17:43] LABS: Potassium 5.3 mmol/L (3.5-5.0)
[2021-07-21 07:27] LABS: ABS Eosinophils 0.1 10^3/ul (0-0.6); ABS Lymphocytes 0.9 10^3/ul (1.0-4.8); ABS Monocytes 0.8 10^3/ul (0-0.8); Eosinophil % 1.5 %; Hematocrit 37 % (42-52); Hemoglobin 12.5 g/dL (14.0-18.0); Lymphocyte % 9.9 %; Mean Corpuscular HGB Conc 34 g/dL (31-36); Mean Corpuscular Hemoglobin 33 pg (27-31); Mean Corpuscular Volume 97 fL (80-94); Mean Platelet Volume 6.9 fL (7.4-10.4); Platelet Count 144 10^3/uL (150-450); Red Blood Count 3.81 10^6 /uL (4.18-5.48); Red Cell Distribution Width 14 % (10-15); White Blood Count 8.9 10^3/uL (3.5-10.8)
[2021-07-21 07:49] LABS: Calcium 8.3 mg/dL (8.6-10.3); Globulin 2.9 g/dL (2-4); Potassium 4.9 mmol/L (3.5-5.0); Total Bilirubin 0.6 mg/dL (0.2-1.0); Total Protein 5.9 g/dL (6.4-8.9); eGFR CKD-EPI 18.3 (>60)
[2021-07-21] MEDS ORDERED: Lactated Ringers 1000 ml BAG 1,000 ML IV SCH (08:00)
[2021-07-21] MEDS: CALCIUM GLUCONATE 1GM/50ML NS 1 GM/50 ML BAG IV SCH ×2 (08:40→10:18)
[2021-07-21] MEDS: Aspirin EC 81 mg TAB.EC (enteric coated) PO SCH (08:40)
[2021-07-21] MEDS ORDERED: Lactated Ringers 1000 ml BAG 1,000 ML IV ONE (10:40)
[2021-07-21] MEDS ORDERED: cefTRIAXone 1 gm/50 mL D5W 1 GM/50 ML BAG IV SCH ×2 (11:00→12:30)
[2021-07-21] MEDS ORDERED: Piperacillin/Tazobac ADVAN 3.375 GM in NS 0.9% 100 ml BAG 100 ML IV ONE (12:01)
[2021-07-21] MEDS ORDERED: Zosyn per Pharmacy NOTE FOLLOW UP SCH (13:00)
[2021-07-21] MEDS: Enoxaparin 30 MG/0.3 ML SYR SUBCUT SCH (14:46)
[2021-07-21] MEDS ORDERED: Morphine 2 MG/ML SYRINGE IV PRN (15:00)
[2021-07-22 08:13] LABS: Hematocrit 38 % (42-52); Hemoglobin 12.8 g/dL (14.0-18.0); Mean Corpuscular HGB Conc 34 g/dL (31-36); Mean Corpuscular Hemoglobin 33 pg (27-31); Mean Corpuscular Volume 97 fL (80-94); Mean Platelet Volume 6.7 fL (7.4-10.4); Platelet Count 146 10^3/uL (150-450); Red Blood Count 3.93 10^6 /uL (4.18-5.48); Red Cell Distribution Width 15 % (10-15); White Blood Count 6.8 10^3/uL (3.5-10.8)
[2021-07-22 08:41] LABS: Calcium 8.9 mg/dL (8.6-10.3); Potassium 4.4 mmol/L (3.5-5.0); eGFR CKD-EPI 28.2 (>60)
[2021-07-22] MEDS: Aspirin EC 81 mg TAB.EC (enteric coated) PO SCH (10:33)
[2021-07-22] MEDS ORDERED: cefTRIAXone 1 gm/50 mL D5W 1 GM/50 ML BAG IV SCH (11:00)
[2021-07-22] MEDS: Enoxaparin 30 MG/0.3 ML SYR SUBCUT SCH (12:29)
[2021-07-22] MEDS ORDERED: fentaNYL 100 mcg/2 ml 50 MCG/ML VIAL ONE (17:39)
[2021-07-22] MEDS ORDERED: Ketamine HCL 50 mg/ml 10 ml VIAL (500 MG) ONE (17:39)
[2021-07-22] MEDS ORDERED: Propofol 10 MG/ML 20 ML BTL ONE (17:39)
[2021-07-22] MEDS ORDERED: Phenylephrine 40 mcg/mL 10mL (400mcg) SYRINGE ONE (17:40)
[2021-07-22] MEDS ORDERED: Lidocaine 2% PF 5 ML VIAL ONE (17:40)
[2021-07-22] MEDS ORDERED: Iohexol 180 (CONTRAST) 20 ML SDV IV ONE (18:00)
[2021-07-22] MEDS: D5W 1/2 NS 1000 ml BAG 1,000 ML IV SCH (20:12)
[2021-07-23] MEDS: D5W 1/2 NS 1000 ml BAG 1,000 ML IV SCH (06:11)
[2021-07-23 06:39] LABS: Hematocrit 39 % (42-52); Mean Corpuscular HGB Conc 33 g/dL (31-36); Mean Corpuscular Hemoglobin 32 pg (27-31); Mean Corpuscular Volume 97 fL (80-94); Mean Platelet Volume 6.9 fL (7.4-10.4); Platelet Count 133 10^3/uL (150-450); Red Blood Count 4.04 10^6 /uL (4.18-5.48); Red Cell Distribution Width 15 % (10-15); White Blood Count 6.7 10^3/uL (3.5-10.8)
[2021-07-23 06:57] LABS: Calcium 8.3 mg/dL (8.6-10.3); Magnesium 1.8 mg/dL (1.9-2.7); Potassium 4.4 mmol/L (3.5-5.0); eGFR CKD-EPI 39.1 (>60)
[2021-07-23] MEDS ORDERED: Morphine ORAL CONCENTRATE 5 MG/0.25 ML ORAL.SYRIN PO PRN (16:21)
[2021-07-23] MEDS: cefTRIAXone 1 GM Q24H (Pharmacy Admix) IVPB SCH (16:33)
[2021-07-23] MEDS: Nystatin TOP POWDER 15 GM BTL TOPICAL SCH ×3 (16:33→21:52)
[2021-07-23] MEDS: Enoxaparin 30 MG/0.3 ML SYR SUBCUT SCH (17:42)
[2021-07-23] MEDS: Aspirin EC 81 mg TAB.EC (enteric coated) PO SCH (17:43)
[2021-07-23] MEDS: HYDROmorphone 0.5 MG/0.5 ML SYRINGE IV SLOW PU PRN ×2 (18:40→23:59)
[2021-07-23] MEDS ORDERED: Lorazepam PYXIS KEY PRN (20:03)
[2021-07-23] MEDS ORDERED: LORazepam 2 mg VIAL 1 ml IV PUSH PRN (20:03)
[2021-07-24] MEDS: HYDROmorphone 0.5 MG/0.5 ML SYRINGE IV SLOW PU PRN ×2 (08:24→12:50)
[2021-07-24] MEDS: Nystatin TOP POWDER 15 GM BTL TOPICAL SCH ×4 (10:30→23:15)
[2021-07-24] MEDS: cefTRIAXone 1 GM Q24H (Pharmacy Admix) IVPB SCH (11:58)
[2021-07-24] MEDS ORDERED: hydrOXYzine IM 50 MG/ML VIAL IM SCH (21:00)
[2021-07-25] MEDS ORDERED: Magnesium Sulfate IV 3 GM in NS 0.9% 100 ml BAG 100 ML IVPB ONE (07:27)
[2021-07-25 07:49] LABS: Calcium 9.1 mg/dL (8.6-10.3); Magnesium 1.7 mg/dL (1.9-2.7); Potassium 4.2 mmol/L (3.5-5.0); eGFR CKD-EPI 52.5 (>60)
[2021-07-25 07:52] LABS: ABS Basophils 0.1 10^3/ul (0-0.2); ABS Eosinophils 0.3 10^3/ul (0-0.6); ABS Lymphocytes 0.8 10^3/ul (1.0-4.8); ABS Monocytes 0.9 10^3/ul (0-0.8); ABS Neutrophils 14.7 10^3/ul (1.5-7.7); Eosinophil % 1.5 %; Hematocrit 47 % (42-52); Hemoglobin 15.4 g/dL (14.0-18.0); Lymphocyte % 5.1 %; Mean Corpuscular HGB Conc 33 g/dL (31-36); Mean Corpuscular Hemoglobin 32 pg (27-31); Mean Corpuscular Volume 98 fL (80-94); Mean Platelet Volume 7.7 fL (7.4-10.4); Nucleated Red Blood Cells % 0.1; Platelet Count 170 10^3/uL (150-450); Red Blood Count 4.77 10^6 /uL (4.18-5.48); Red Cell Distribution Width 15 % (10-15); White Blood Count 16.8 10^3/uL (3.5-10.8)
[2021-07-25] MEDS ORDERED: Magnesium Sulfate 2 GM IV (Premix) IVPB ONE (08:00)
[2021-07-25] MEDS ORDERED: Magnesium Sulfate 1 GM IV 1 GM/100 ML BAG IV ONE (09:00)
[2021-07-25] MEDS: Nystatin TOP POWDER 15 GM BTL TOPICAL SCH ×3 (10:06→20:27)
[2021-07-25] MEDS ORDERED: D5W 1000 ml BAG 1,000 ML IV SCH (12:00)
[2021-07-25] MEDS ORDERED: CMCS:Oral Rinse (Biotene)(NF) 237 ML or 473 ML ORAL RINSE BTL MT SCH (15:00)
[2021-07-25 16:43] VITALS: BP 111/65
[2021-07-25] MEDS ORDERED: hydrOXYzine IM 50 MG/ML VIAL IM PRN (17:09)
[2021-07-25] MEDS: diPHENhydraMINE CREAM 2%(NF) 28 gm TUBE TOPICAL SCH ×3 (17:45→20:24)
[2021-07-25] MEDS: Morphine ORAL CONCENTRATE 5 MG/0.25 ML ORAL.SYRIN PO PRN (17:55)
[2021-07-25] MEDS ORDERED: Enoxaparin 40 MG/0.4 ML SYR SUBCUT SCH (18:00)
[2021-07-25] MEDS ORDERED: Scopolamine 1 mg/72hr PATCH TRANSDERM SCH (18:00)
[2021-07-26] MEDS: Morphine ORAL CONCENTRATE 5 MG/0.25 ML ORAL.SYRIN PO PRN (10:05)
[2021-07-26] MEDS: Nystatin TOP POWDER 15 GM BTL TOPICAL SCH ×3 (11:21→19:59)
[2021-07-26] MEDS: diPHENhydraMINE CREAM 2%(NF) 28 gm TUBE TOPICAL SCH ×3 (11:21→19:59)
[2021-07-26] MEDS: Calamine LOTION BTL TOPICAL SCH ×2 (15:42→19:58)
[2021-07-27] MEDS: diPHENhydraMINE CREAM 2%(NF) 28 gm TUBE TOPICAL SCH (08:24)
[2021-07-27] MEDS: Nystatin TOP POWDER 15 GM BTL TOPICAL SCH (08:24)
[2021-07-27] MEDS: Calamine LOTION BTL TOPICAL SCH (08:24)
== END 2021-07-27 09:00 | disposition home or self-care (01) | DRG 853 ==
LOC: ED 08:28 → EDHOLD 08:28 → SUATTDRO 13:12 → EDHOLD 14:32 → MED 15:43 → SUATTDRO 07-21 16:16
PROVIDERS: ADMIT Hospitalist; ATTEND Hospitalist